=== PATIENT | male | born 1990 | race Two or more races ===

== ENCOUNTER 2017-05-12 19:39 | Emergency (ER) | payer SELFPAY ==
[2017-05-12] MEDS ORDERED: PROPOFOL INJ 200 MG/20 ML VIAL IV ONE (20:32)
[2017-05-12] MEDS ORDERED: MORPHINE SULFATE 10 MG/ML INJ IV PRN (20:32)
--- NOTE | 2017-05-12 20:32 | ER Document Report ---
ED General - General Chief Complaint: Arm Injury Stated Complaint: ELBOW INJURY Time Seen by Provider: 05/12/17 20:29 Notes: Patient is a 26-year-old male without past medical history who presents after falling onto an outstretched hand and dislocating his left elbow. He was playing kickball when he did this. He denies any additional injuries. He arrives complaining of a dull, constant, aching pain to the left elbow that is worsened by any attempt at movement. He has not tried anything for relief of the pain. He has no history of similar injuries in the past. Denies any associated weakness or numbness. TRAVEL OUTSIDE OF THE [place] IN LAST 30 DAYS: No - Related Data Allergies/Adverse Reactions: No Known Allergies Allergy (Verified 05/12/17 20:11) Past Medical History - General Information source: Patient - Social History Smoking Status: Never Smoker Frequency of alcohol use: None Drug Abuse: None Lives with: Spouse/Significant other Family History: Reviewed & Not Pertinent Renal/ Medical History: Denies: Hx Peritoneal Dialysis Review of Systems - Review of Systems Notes: Constitutional: Negative for fever. Eyes: Negative for visual changes. ENT: Negative for facial injury Cardiovascular: Negative for chest injury. Respiratory: Negative for shortness of breath. Gastrointestinal: Negative for abdominal injury. Genitourinary: Negative for genital injury Musculoskeletal: Positive for left elbow injury Skin: Negative for laceration/abrasions. Neurological: Negative for head injury. Physical Exam - Vital signs Vitals: Temp Pulse Resp BP Pulse Ox 98.9 F 69 16 144/75 H 100 05/12/17 20:11 05/12/17 20:11 05/12/17 20:11 05/12/17 20:11 05/12/17 20:11 Interpretation: Hypertensive Notes: PHYSICAL EXAMINATION: GENERAL: Appears to be uncomfortable, in pain but no acute distress. HEAD: Atraumatic, normocephalic. EYES: Pupils equal round and reactive to light, extraocular movements intact, sclera anicteric, conjunctiva are normal. ENT: nares patent, oropharynx clear without exudates. Moist mucous membranes. NECK: Normal range of motion, supple without lymphadenopathy LUNGS: Breath sounds clear to auscultation bilaterally and equal. No wheezes rales or rhonchi. HEART: Regular rate and rhythm without murmurs ABDOMEN: Soft, nontender, normoactive bowel sounds. No guarding, no rebound. No masses appreciated. EXTREMITIES: Obvious deformity and swelling of the left elbow. Otherwise no long bone deformities or limited range of motion. NEUROLOGICAL: No focal neurological deficits. Moves all extremities spontaneously and on command. PSYCH: Normal mood, normal affect. SKIN: Warm, Dry, normal turgor, no rashes or lesions noted. Course - Re-evaluation Re-evalutation: 05/12/17 20:35 Patient presents with a left elbow dislocation after falling on a outstretched arm. No additional injuries are sustained. Full RMU motor and sensory distribution is intact at time of assessment. Will consciously sedated using propofol and relocate. 05/12/17 22:17 Elbow has been reduced without difficulty. Patient was placed in a sling. Reduction does show very small coronoid fracture but no additional findings. Uncertain if this was present prior to relocation. Patient has no pain at this time. I have instructed him to follow-up with orthopedic surgery within the next 1 week. At this time will discharge with return precautions and follow-up recommendations. Verbal discharge instructions given a the bedside and opportunity for questions given. Medication warnings reviewed. Patient is in agreement with this plan and has verbalized understanding of return precautions and the need for ortho follow-up in the next 1 week. - Vital Signs Vital signs: Temp Pulse Resp BP Pulse Ox 98.9 F 69 20 145/73 H 99 05/12/17 20:11 05/12/17 20:11 05/12/17 23:20 05/12/17 23:20 05/12/17 23:20 - Diagnostic Test Radiology reviewed: Image reviewed, Reports reviewed Radiology results interpreted by me: 05/12/17 22:18 First elbow x-ray: Elbow dislocation Second elbow x-ray: Relocation confirmed Procedures - Conscious Sedation Conscious sedation Time started: 21:48 Time completed: 21:56 Consent obtained: Yes Indication: reduction of the left elbow Prior complications: Procedural sedation Normal healthy pt.: P1. - ASA Classification Airway Evaluation: Normal anatomy Mallampati Classification: Class 1 Used during procedure: Suction available, IV access obtained, Pulse ox on pt., monitor car operator on pt. Medications administered: Diprivan Reversal agents: None I personally performed/intraservice time: Sedation, Procedure, 30 min or less Complications: No - Joint Reduction/Fracture Care Left Elbow Time completed: 21:50 Consent obtained: Yes Conscious sedation: Yes Pre-procedure NV exam: Yes Manipulation comment: Downward and proximal traction Post-procedure NV exam: Yes Post-reduction x-ray: Joint reduced Reduction attempts: 1 Complications: No Discharge - Discharge Clinical Impression: Dislocation of left elbow Qualifiers: Encounter type: initial encounter Qualified Code(s): S53.105A - Unspecified dislocation of left ulnohumeral joint, initial encounter Condition: Good Disposition: HOME, SELF-CARE Additional Instructions: You were seen for dislocation of your left elbow. This was reduced here in the emergency department. Continue to wear the sling. Follow-up with orthopedic surgery within the next 1 week. For your pain: Take ibuprofen 600 mg and acetaminophen 1000 mg every 6 hours together as needed. Referrals: SIENNA WOLFE MD [ACTIVE STAFF] - Follow up in 1 week
--- NOTE | 2017-05-12 20:53 | RADIOLOGY REPORT (SQ) ---
EXAM DESCRIPTION: ELBOW LEFT AP/LATERAL COMPLETED DATE/TIME: 05/12/2017 8:43 pm REASON FOR STUDY: deformity COMPARISON: None. NUMBER OF VIEWS: Two views. TECHNIQUE: AP and lateral radiographic images acquired of the left elbow. LIMITATIONS: None. FINDINGS: MINERALIZATION: Normal. BONES: There is dislocation. Distal humerus is displaced anteriorly in relation to the olecranon. JOINT: No effusion. SOFT TISSUES: No soft tissue swelling. No foreign body. OTHER: No other significant finding. IMPRESSION: Dislocated left elbow. No fracture. TECHNICAL DOCUMENTATION: JOB ID: [id number] [id number]- All Rights Reserved
--- NOTE | 2017-05-12 22:15 | RADIOLOGY REPORT (SQ) ---
EXAM DESCRIPTION: ELBOW LEFT AP/LATERAL COMPLETED DATE/TIME: 05/12/2017 9:58 pm REASON FOR STUDY: post reduction COMPARISON: Earlier exam NUMBER OF VIEWS: One view. TECHNIQUE: Lateral radiographic images acquired of the left elbow. LIMITATIONS: None. FINDINGS: 4 mm avulsion fracture is noted superior to the coronoid process. Small joint effusion is present. The previous posterior dislocation has been reduced. OTHER: No other significant finding. IMPRESSION: 4 mm avulsion fracture is noted superior to the coronoid process. Small joint effusion is present. The previous posterior dislocation has been reduced. TECHNICAL DOCUMENTATION: JOB ID: [id number] [employer]- All Rights Reserved
[2017-05-12 23:25] VITALS: BP 145/73
== END 2017-05-12 23:35 | disposition home or self-care (01) ==
LOC: ER 19:39
PROC: 0RSMXZZ Reposition Left Elbow Joint, External Approach (ICD-10-PCS; principal; 2017-05-12)
DX: S53.105A Unspecified dislocation of left ulnohumeral joint, initial encounter (principal); X58.XXXA Exposure to other specified factors, initial encounter; Y93.69 Activity, other involving other sports and athletics played as a team or group
CPT/HCPCS: 99283; 99152; 96374; 73070; 24600; J2270